=== PATIENT | male | born 1980 | race Two or more races ===

== ENCOUNTER 2020-09-12 15:51 | Emergency (ER) | payer OTHER ==
[~2020-09-12] VITALS: Ht 175.3 cm; Wt 56.7 kg
[2020-09-12 16:03] VITALS: BP 117/74
--- NOTE | 2020-09-12 16:03 | NUR ---
PT BIBA TO LOBBY
--- NOTE | 2020-09-12 16:19 | NUR ---
39 Y/O MALE IN FOR MEDICATION REFILL. PT C/O PAIN 8/10 IN NECK AND "ALL OVER HIS BODY" THAT IS SHARP AND DULL. PT STATES HE IS HAVING "WITHDRAWL SYMPTOMS". C/O SOB, CHILLS, AND HOTFLASHES AND DENIES N/V. PT STATED PHARMACY WAS OUT OF STOCK OF MEDS AND WONT REFILL HIS NORCO UNTIL 09/17 AND NEEDS MORE. PT A&0 X4 SITTIN IN LOBBY. PMH: NECK SX 06/2020 AND KNEE SX:2013 NKA
--- NOTE | 2020-09-12 16:28 | NUR ---
DR PEREZ IN [facility] FOR FURTHER EVALUATION
--- NOTE | 2020-09-12 16:47 | NUR ---
Patient discharged with v/s stable. Written and verbal after care instructions given and explained. Patient alert, oriented and verbalized understanding of instructions. Ambulatory with steady gait. All questions addressed prior to discharge. ID band removed. Patient advised to follow up with PMD. Rx of norco 10mg-325mg tab PO q4hrs and zofran 8mg tab PO q8hrs given. Patient educated on indication of medication including possible reaction and side effects. Opportunity to ask questions provided and answered.
[2020-09-12 16:48] VITALS: BP 117/74
--- NOTE | 2020-09-12 17:35 | NUR ---
Pt refusing to leave ER lobby. Pt states "I'm not leaving here until I get treatment." I advised patient that he has been seen by ER doctor and discharged with a prescription and needed to go get it filled at pharmacy. Pt insisiting that his pharamcy is out of stock until the and will take 3-4 hours to find a pharmacy available. I offered to call a taxi for patient since he came in via ambulance with his son and told him he could take the taxi anywhere he would like. Pt refused. Pt is extremely agitated and threatening to not leave and threatening to uche the hospital. I advised the patient if he wanted to check into the ER again he could and would have to start the process all over again and would be seen by same physician. Pt requesting to speak with RAMIRO. Dr. Gould made aware.
--- NOTE | 2020-09-12 17:50 | NUR ---
Pt refusing to leave ER lobby. Requested Dr. Gould speak with patient about his discharge, rx and that he would not receive a dose of medication here in the ED. Pt was seen and discharged by Dr. Gould with a rx for Scotts 10mg-325mg quanity 20 tabs and Zofran ODT 4mg. Pt uncooperative, verbally aggressive, threatening myself saying "I'm going to leave but you won't like what happens when I do." Dr. Gould spoke in length with patient that he was very generous with his prescription and he was discharged and needed to go fill his rx. Pt refusing to leave stating that he had not been treated. Pt refusing to leave stating "It will take me 3-4 hours to find this medication. My pharmacy is out of stock until the ." Dr. Gould reinforced that patient needed to follow up with pain management on Tuesday and take rx to multiple pharmacies if needed to fill rx. Security called into ER lobby to escort patient out of lobby.
--- NOTE | 2020-09-12 18:01 | NUR ---
Pt tried re-entering ED [email or web address] called me to entrance. Pt stating "Transfer me to [place]! Call an ambulance to transfer me to [place] now! I'm still a patient. I have not received treatment." Pt asked to leave by security and fill his prescription at a pharmacy.
== END 2020-09-12 16:47 | disposition home or self-care (01) ==
LOC: MED 15:51
DX: G89.29 Other chronic pain (principal); M54.2 Cervicalgia; R11.0 Nausea; F17.210 Nicotine dependence, cigarettes, uncomplicated; Z79.899 Other long term (current) drug therapy; Z76.0 Encounter for issue of repeat prescription
CPT/HCPCS: 99283